=== PATIENT | female | born 1990 | race American Indian/Alaskan Native ===

== ENCOUNTER 2018-02-12 11:12 | Emergency (ER) | payer OTHER ==
[2018-02-12 11:12] VITALS: BMI 30.9
--- NOTE | 2018-02-12 12:11 | ED PDOC ---
Arrival/HPI <Analilia Klein - Last Filed: 02/12/18 14:20> - History of Present Illness Symptom Course: Improving <Daniel Galindo - Last Filed: 02/12/18 15:37> - General Chief Complaint: Abdominal Pain Time Seen by Provider: 02/12/18 11:18 - History of Present Illness Narrative History of Present Illness (Text): 27 year old Female with a PMH of panic attacks and asthma presents with worsening abdominal pain that started 3 days ago. 3 days ago she reports having worsening LLQ/ left pelvic cramping pain that was relieved over the past few days. She did not take anything to relieve the pain. She also reports increased urinary frequency for 2 days with 3 to 4 days of dysuria. She does not report hematuria. She reports runny feces at least 3 times a day for the past 3 days while she usually has only 0-1 bowel movements a day. She reports back pain that is exacerbated with movement. She reports her periods are regular and last had sex last Sunday. She denies any nausea or vomiting. Patient has a history of being seen for abdominal pain. She has had an appendectomy due to abdominal pain in 2009, which did not relieve her pain. She also has been examined for SBO, which came out negative about 2 years ago. 02/12/18 12:03 (Daniel Galindo) Past Medical History - Provider Review Nursing Documentation Reviewed: Yes - Infectious Disease Hx of Infectious Diseases: None - Tetanus Immunization Tetanus Immunization: Unknown - Cardiac Hx Cardiac Disorders: No - Pulmonary Hx Respiratory Disorders: Yes Hx Asthma: Yes - Neurological Hx Neurological Disorder: No - HEENT Hx HEENT Disorder: No - Renal Hx Renal Disorder: No - Endocrine/Metabolic Hx Endocrine Disorders: No - Hematological/Oncological Hx Blood Disorders: No - Integumentary Hx Dermatological Disorder: No - Musculoskeletal/Rheumatological Hx Musculoskeletal Disorders: No - Gastrointestinal Hx Gastrointestinal Disorders: Yes - Genitourinary/Gynecological Hx Genitourinary Disorders: No - Psychiatric Hx Psychophysiologic Disorder: Yes Hx Anxiety: Yes Hx Depression: No Hx Panic Disorder: Yes Hx Substance Use: No - Surgical History Hx Appendectomy: Yes Hx Section: Yes - Anesthesia Hx Anesthesia: Yes Hx Anesthesia Reactions: No Hx Malignant Hyperthermia: No - Suicidal Assessment Feels Threatened In Home Enviroment: No <Daniel Galindo - Last Filed: 02/12/18 15:37> Family/Social History - Physician Review Nursing Documentation Reviewed: Yes Family/Social History: Diabetes, Hypertension, Other (Small bowel obstruction) Smoking Status: Never Smoked Hx Alcohol Use: Yes Frequency of alcohol use: Socially Hx Substance Use: No <Erica Galindoectordurga - Last Filed: 02/12/18 15:37> Allergies/Home Meds <Analilia Klein - Last Filed: 02/12/18 14:20> <Erica Galindoectordurga - Last Filed: 02/12/18 15:37> Allergies/Adverse Reactions: Allergies No Known Allergies Allergy (Verified 02/12/18 11:32) Review of Systems - Physician Review All systems were reviewed & negative as marked: Yes - Review of Systems Constitutional: Normal Eyes: Normal ENT: Normal Respiratory: Normal Cardiovascular: Normal Gastrointestinal: Abdominal Pain, Diarrhea (not full diarrhea) Genitourinary Female: Dysuria, Frequency Musculoskeletal: Back Pain Skin: Normal Neurological: Normal Endocrine: Normal Hemo/Lymphatic: Normal <Erica Galindoectordurga - Last Filed: 02/12/18 15:37> Physical Exam <Analilia Klein - Last Filed: 02/12/18 14:20> Vital Signs Reviewed: Yes Temperature: Afebrile Blood Pressure: Normal Pulse: Regular Respiratory Rate: Normal Appearance: Positive for: Well-Appearing Pain Distress: Mild Mental Status: Positive for: Alert and Oriented X 3 - Systems Exam Head: Present: Atraumatic Pupils: Present: PERRL Extroacular Muscles: Present: EOMI Conjunctiva: Present: Normal Nose (External): Present: Atraumatic Respiratory/Chest: Present: Clear to Auscultation Cardiovascular: Present: Regular Rate and Rhythm Abdomen: Present: Other (Minimal LLQ tenderness. No guarding or rebound) Back: Present: Paraspinal Tenderness Upper Extremity: Present: Normal Inspection Lower Extremity: Present: Normal Inspection Neurological: Present: GCS=15, CN II-XII Intact, Motor Func Grossly Intact, Normal Sensory Function Psychiatric: Present: Alert, Oriented x 3, Normal Insight, Normal Concentration <Erica Galindoectordurga - Last Filed: 02/12/18 15:37> Vital Signs Temp Pulse Resp BP Pulse Ox 02/12/18 15:01 98.3 F 68 17 112/68 98 02/12/18 11:55 98.1 F 95 H 18 127/89 100 02/12/18 11:44 98.1 F 95 H 18 127/87 100 Medical Decision Making <Analilia Klein - Last Filed: 02/12/18 14:20> <Daniel Galindo - Last Filed: 02/12/18 15:37> ED Course and Treatment: 02/12/18 12:41 Patient seen and examined with medical officer psychiatry. On exam, patient is comfortable , eating, with NO pain on palpation of upper and lower quadrants, although she expresses that pain has been to LLQ. No fever. No nausea or vomiting. Denies vaginal bleeding or discharge. No association with meals or activity. 02/12/18 14:22 I have reviewed the patient's abnormal ultrasound report in laymens' terms. On re-exam, she has minimal pain and is afebrile, comfortable. I have discussed ultrasound extensively with patient and stressed need for follow-up with her cord cutter. Patient expresses understanding of diagnosis and need for follow-up. (Analilia Klein) Impression: 27 year old presents with left lower quadrant abdominal/pelvic pain that is crampy in nature for 3 days. Assessment: Psychogenic abdominal pain. Rule out pancreatitis, cholecystitis, ectopic , ovarian cyst, UTI, PID, pyelonephritis. Plan: CBC, CMP lipase urine analysis: small leukocyte esterase, 0-2 blood, 5-10 WBCs, moderate bacteria urine culture urine bHCG test: negative Pelvic U/S: 2.4 cm subserosal fundal fibroid. 2.4 cm complicated/ hemorrhagic cyst in the left ovary. 02/12/18 15:36 Patient will be discharged and told to follow up with PAPER [facility]OLDER doctor outpatient to evaluate causes of pelvic pain including but not limited to fibroid or hemorrhagic cyst 02/12/18 15:37 (Daniel Galindo) - Lab Interpretations Lab Results: 02/12/18 12:26 02/12/18 12:26 Lab Results 02/12/18 14:04: Urine Color Yellow, Urine Appearance Clear, Urine pH 6.0, Ur Specific [place] 1.020, Urine Protein Negative, Urine Glucose (UA) Negative, Urine Ketones Negative, Urine Blood Negative, Urine Nitrate Negative, Urine Bilirubin Negative, Urine Urobilinogen 0.2, Ur Leukocyte Esterase Small H, Urine RBC 0 - 2, Urine WBC 5 - 10, Ur Epithelial Cells 4 - 5, Urine Bacteria Mod , Urine HCG, Qual Negative 02/12/18 12:26: Sodium 141, Potassium 4.0, Chloride 105, Carbon Dioxide 26, Anion Gap 14, BUN 11, Creatinine 0.8, Est GFR ( Amer) > 60, Est GFR (Non- Af Amer) > 60, Random Glucose 75, Calcium 9.1, Total Bilirubin 0.4, AST 23, ALT 17, Alkaline Phosphatase 66, Total Protein 7.3, Albumin 4.1, Globulin 3.2, Albumin/Globulin Ratio 1.3, Lipase 89 02/12/18 12:26: WBC 7.0, RBC 4.60, Hgb 12.4, Hct 37.3, MCV 81.1, MCH 27.0, MCHC 33.2, RDW 13.7, Plt Count 298, MPV 10.1, Gran % 58.8, Lymph % (Auto) 28.6, [place] % (Auto) 6.7 H, Eos % (Auto) 5.3 H, Baso % (Auto) 0.6, Gran # 4.14, Lymph # ( Auto) 2.0, [place] # (Auto) 0.5, Eos # (Auto) 0.4, Baso # (Auto) 0.04 - RAD Interpretation Radiology Orders: 02/12/18 12:17 TRANSVAGINAL [US] Stat - PA / EXPEDITER CLERK / Resident Statement SUSAN has reviewed & agrees with the documentation as recorded. SUSAN has examined the patient and agrees with the treatment plan. <Daniel Galindo - Last Filed: 02/12/18 15:37> Disposition/Present on Arrival - Disposition Disposition Time: 14:00 <Analilia Klein - Last Filed: 02/12/18 14:20> - Present on Arrival Any Indicators Present on Arrival: No History of DVT/PE: No History of Uncontrolled Diabetes: No Urinary Catheter: No History of Decub. Ulcer: No History Surgical Site Infection Following: None - Disposition Have Diagnosis and Disposition been Completed?: Yes Disposition Time: 12:19 Patient Plan: Discharge <Daniel Galindo - Last Filed: 02/12/18 15:37> - Disposition Diagnosis: Abdominal pain, Hemorrhagic ovarian cyst, UTI (urinary tract infection) Disposition: HOME/ ROUTINE Patient Problems: Current Active Problems Problem Status Onset Abdominal pain Acute Hemorrhagic ovarian cyst Acute UTI (urinary tract infection) Acute Condition: STABLE Discharge Instructions (ExitCare): Urinary Tract Infection, Adult (DC), Ovarian Cyst (DC) Additional Instructions: For any fevers, any chills, any return or worsening of any pain, any abnormal vaginal bleeding, any nausea or vomiting, any change in location or character of pain, any persistent or worsening of any symptoms, get rechecked. Follow-up with your cord cutter as discussed in 1-2 days. Return to ER immediately for any worsening of symptoms. Please contact your doctor or call one of the physicians/clinics you have been referred to that are listed on the Patient Visit Information form that is included in your discharge packet. Bring any paperwork you were given at discharge with you along with any medications you are taking to your follow up visit. Our treatment cannot replace ongoing medical care by a primary care provider outside of the emergency department. Thank you for allowing the [facility] team to be part of your care today. If you had an X-Ray or CT scan: A Radiologist will review the ED reading if any change in treatment is needed we will contact you. If you had a blood, urine, or wound culture: It will take several days for the results, if any change in treatment is needed we will contact you. Prescriptions: Naproxen 250 mg PO BID PRN #10 tablet PRN Reason: Pain, Mild (1-3) Sulfamethoxazole/Trimethoprim [Bactrim DS 800 mg-160 mg] 1 tab PO BID #14 tab Referrals: Brijesh Samuels MD [Primary Care Provider] - Follow up with primary Jeffy Turner MD [Staff Provider] - [facility] - Follow up with primary Forms: [employer] (Hungarian), WORK NOTE
[2018-02-12 12:31] LABS: BASO # 0.04 K/mm3 (0.0-2.0); BASO % 0.6 % (0.0-3.0); EOS # 0.4 (0.0-0.7); EOS % 5.3 % (1.5-5.0); GRAN # 4.14 (1.4-6.5); GRAN % 58.8 % (50.0-68.0); HEMOGLOBIN 12.4 g/dL (12.0-16.0); LYMPH % 28.6 % (22.0-35.0); MEAN CELL VOLUME 81.1 fl (80.0-105.0); MEAN CORPUSCULAR HGB CONC 33.2 g/dl (31.0-37.0); MEAN PLATELET VOLUME 10.1 fl (7.0-11.0); MONO # 0.5 (0.1-0.6); MONO % 6.7 % (1.0-6.0); RBC 4.6 10^6/uL (3.5-6.1); RED CELL DISTRIBUTION WIDTH 13.7 % (11.5-14.5)
[2018-02-12 12:41] LABS: ALB/GLOB RATIO 1.3 (1.1-1.8); ALBUMIN 4.1 g/dL (3.0-4.8); ALT/SGPT 17 U/L (7-56); AST/SGOT 23 U/L (14-36); BLOOD UREA NITROGEN 11 mg/dL (7-21); CALCIUM 9.1 mg/dL (8.4-10.5); GFR AFRICAN-AMERICAN > 60; GFR NON-AFRICAN AMERICAN > 60; LIPASE 89 U/L (23-300)
--- NOTE | 2018-02-12 13:51 | US ---
Date of service: 02/12/2018 HISTORY: Left lower quadrant pain COMPARISON: None available. TECHNIQUE: Transabdominal and transvaginal pelvic ultrasound was performed. FINDINGS: UTERUS: Measures 11.5 x 4.6 x 6.1 cm. Anteverted an enlarged. There is a 2.2 x 2.1 x 2.4 cm subserosal fundal fibroid. . ENDOMETRIUM: Measures 10 mm in diameter. Normal in appearance. CERVIX: No cervical abnormality identified. RIGHT OVARY: Measures 3.2 x 1.9 x 1.3 cm. No solid mass. Normal flow. LEFT OVARY: Measures 3.3 x 2.1 x 2.8 cm. No solid mass. Normal flow. There is a 2.4 x 1.5 x 2.1 cm complicated/hemorrhagic cyst. FREE FLUID: No significant free fluid noted. OTHER FINDINGS: None. IMPRESSION: 2.4 cm subserosal fundal fibroid. 2.4 cm complicated/ hemorrhagic cyst in the left ovary.
[2018-02-12 14:33] LABS: URINE BILIRUBIN NEGATIVE (NEGATIVE); URINE BLOOD NEGATIVE (NEGATIVE); URINE GLUCOSE (UA) NEGATIVE (NEGATIVE); URINE LEUKOCYTE ESTERASE SMALL Leu/uL (NEGATIVE); URINE PROTEIN NEGATIVE mg/dL (<30 mg/dL); URINE UROBILINOGEN 0.2 E.U./dL (<1 E.U./dL)
[2018-02-12 14:34] LABS: URINE APPEARANCE CLEAR (CLEAR); URINE COLOR YELLOW (YELLOW)
[2018-02-12 14:39] LABS: URINE BACTERIA MOD (NEG); URINE RBC 0 - 2 /hpf (0-2)
[2018-02-12 14:40] LABS: HCG,QUALITATIVE URINE NEGATIVE (NEGATIVE)
[2018-02-12 15:02] VITALS: BP 112/68; RESP 17; TEMP 98.3; O2SAT 98
[2018-02-12 15:33] VITALS: PULSE 84
== END 2018-02-12 15:32 | disposition home or self-care (01) ==
LOC: ED 11:12
DX: N39.0 Urinary tract infection, site not specified (principal); R10.9 Unspecified abdominal pain; N83.202 Unspecified ovarian cyst, left side

== ENCOUNTER 2018-04-16 11:57 | Emergency (ER) | payer OTHER ==
[2018-04-16 11:57] VITALS: BMI 30.9
[2018-04-16 12:37] VITALS: PULSE 74; O2SAT 100
[2018-04-16] MEDS ORDERED: Sodium Chloride 0.9% 1,000 ML IV STA (13:07)
[2018-04-16 14:12] LABS: BASO # 0.04 K/mm3 (0.0-2.0); BASO % 0.4 % (0.0-3.0); EOS # 0.5 (0.0-0.7); EOS % 5.4 % (1.5-5.0); GRAN # 6.16 (1.4-6.5); LYMPH # 2.8 (1.2-3.4); MEAN CELL VOLUME 82.8 fl (80.0-105.0); MEAN CORPUSCULAR HEMOGLOBIN 27.7 pg (25.0-35.0); MEAN CORPUSCULAR HGB CONC 33.4 g/dl (31.0-37.0); MEAN PLATELET VOLUME 10.7 fl (7.0-11.0); MONO # 0.5 (0.1-0.6); MONO % 5.2 % (1.0-6.0); RBC 4.7 10^6/uL (3.5-6.1); RED CELL DISTRIBUTION WIDTH 13.8 % (11.5-14.5); WHITE BLOOD COUNT 10.1 10^3/ul (4.5-11.0)
[2018-04-16 14:22] LABS: ALB/GLOB RATIO 1.3 (1.1-1.8); ALBUMIN 4.9 g/dL (3.0-4.8); ALT/SGPT 17 U/L (7-56); AST/SGOT 33 U/L (14-36); BLOOD UREA NITROGEN 10 mg/dL (7-21); CALCIUM 9.5 mg/dL (8.4-10.5); GFR NON-AFRICAN AMERICAN > 60; LIPASE 126 U/L (23-300)
[2018-04-16 14:26] LABS: URINE BILIRUBIN NEGATIVE (NEGATIVE); URINE BLOOD LARGE (NEGATIVE); URINE GLUCOSE (UA) NEGATIVE (NEGATIVE); URINE LEUKOCYTE ESTERASE TRACE Leu/uL (NEGATIVE); URINE PROTEIN TRACE mg/dL (<30 mg/dL); URINE UROBILINOGEN 0.2 E.U./dL (<1 E.U./dL)
[2018-04-16 14:27] LABS: URINE APPEARANCE SL CLOUDY (CLEAR); URINE COLOR YELLOW (YELLOW)
[2018-04-16] MEDS ORDERED: Iohexol 350 MG/100 ML VIAL ONE (14:32)
[2018-04-16 14:37] LABS: URINE RBC 0 - 2 /hpf (0-2)
[2018-04-16 14:38] LABS: URINE BACTERIA FEW (NEG); URINE EPITHELIAL CELLS MANY /hpf (0-5)
--- NOTE | 2018-04-16 17:17 | ED PDOC ---
Arrival/HPI - General Chief Complaint: GI Problem Time Seen by Provider: 04/16/18 12:21 Historian: Patient - History of Present Illness Narrative History of Present Illness (Text): 04/16/18 17:12 27yr old female presents today with worsening abdominal pain over the past 2 days. pt with hx of appendectomy. c/o 2 day history of no bowel movement. pt denies fever/chills. no n/v/d. no urinary symptoms. no dizziness or weakness. pt states she has been taking miralax and otc treatments for constipation without improvement. pt also c/o a numbness sensation ONLY over the medial aspect of the right great toe. pt denies any trauma or injury. pt denies pain to the toe. no other complaints. Time/Duration: Other (2 days) Past Medical History - Provider Review Nursing Documentation Reviewed: Yes - Travel History Have you recently traveled outside [place] w/in the past 3 mons?: No - Infectious Disease Hx of Infectious Diseases: None - Tetanus Immunization Tetanus Immunization: Unknown - Cardiac Hx Cardiac Disorders: No - Pulmonary Hx Respiratory Disorders: Yes Hx Asthma: Yes - Neurological Hx Neurological Disorder: No - HEENT Hx HEENT Disorder: No - Renal Hx Renal Disorder: No - Endocrine/Metabolic Hx Endocrine Disorders: No - Hematological/Oncological Hx Blood Disorders: No - Integumentary Hx Dermatological Disorder: No - Musculoskeletal/Rheumatological Hx Musculoskeletal Disorders: No - Gastrointestinal Hx Gastrointestinal Disorders: Yes - Genitourinary/Gynecological Hx Genitourinary Disorders: No - Psychiatric Hx Psychophysiologic Disorder: Yes Hx Anxiety: Yes Hx Depression: No Hx Panic Disorder: Yes Hx Substance Use: No - Surgical History Hx Appendectomy: Yes Hx Section: Yes - Anesthesia Hx Anesthesia: Yes Hx Anesthesia Reactions: No Hx Malignant Hyperthermia: No - Suicidal Assessment Feels Threatened In Home Enviroment: No Family/Social History - Physician Review Nursing Documentation Reviewed: Yes Family/Social History: Unknown Family HX Smoking Status: Never Smoked Hx Alcohol Use: Yes Hx Substance Use: No Allergies/Home Meds Allergies/Adverse Reactions: Allergies No Known Allergies Allergy (Verified 04/16/18 12:21) Review of Systems - Review of Systems Constitutional: absent: Fatigue, Fevers Respiratory: absent: SOB, Cough Cardiovascular: absent: Chest Pain, Palpitations Gastrointestinal: Abdominal Pain, Constipation. absent: Diarrhea, Nausea, Vomiting Genitourinary Female: absent: Dysuria, Frequency, Hematuria Musculoskeletal: absent: Arthralgias, Back Pain, Neck Pain Skin: absent: Rash, Pruritis Neurological: absent: Headache, Dizziness Physical Exam Vital Signs Reviewed: Yes Vital Signs Temp Pulse Resp BP Pulse Ox 04/16/18 12:36 98.4 F 74 18 123/91 H 100 04/16/18 12:16 98.8 F 83 18 130/77 99 Temperature: Afebrile Blood Pressure: Normal Pulse: Regular Respiratory Rate: Normal Appearance: Positive for: Well-Appearing, Non-Toxic, Comfortable Pain Distress: None Mental Status: Positive for: Alert and Oriented X 3 - Systems Exam Head: Present: Atraumatic Mouth: Present: Moist Mucous Membranes Neck: Present: Normal Range of Motion Respiratory/Chest: Present: Clear to Auscultation, Good Air Exchange. No: Respiratory Distress, Accessory Muscle Use Cardiovascular: Present: Regular Rate and Rhythm, Normal S1, S2. No: Murmurs Abdomen: Present: Tenderness (+ diffuse lower abdominal tenderness). No: Distention, Peritoneal Signs, Rebound, Guarding Back: Present: Normal Inspection. No: CVA Tenderness, Midline Tenderness, Paraspinal Tenderness Upper Extremity: Present: Normal ROM Lower Extremity: Present: NORMAL PULSES, Normal ROM, Neurovascularly Intact, Capillary Refill < 2 s, Other (there is a small section of the right great toe that patient has decreased sensation; there appears to be thickened skin/calus formation at the same site. no erythema, no edema, no ecchymosis; ). No: CALF TENDERNESS, Tenderness, Swelling, Erythema Neurological: Present: GCS=15, Speech Normal, Motor Func Grossly Intact, Normal Sensory Function Skin: Present: Warm, Dry, Normal Color. No: Rashes Psychiatric: Present: Alert, Oriented x 3 Medical Decision Making ED Course and Treatment: 04/16/18 17:18 Patient is nontoxic well appearing with stable vital signs presenting with 2 day history of lower abdominal pain with no bowel movement. CBC wnl CMP wnl Lipase wnl Urinalysis wnl CAT scan: FINDINGS: LOWER THORAX: Unremarkable. LIVER: Hepatic steatosis. No focal masses. No intrahepatic bile duct dilatation or perihepatic ascites. Focal fatty sparing and the falciform ligament. GALLBLADDER AND BILE DUCTS: Unremarkable. PANCREAS: Unremarkable. No gross lesion or ductal dilatation. SPLEEN: Unremarkable. ADRENALS: Unremarkable. No mass. KIDNEYS AND URETERS: Unremarkable. No hydronephrosis. No solid mass. VASCULATURE: Unremarkable. No aortic aneurysm. BOWEL: Unremarkable. No obstruction. No gross mural thickening. Diverticulosis without an acute inflammatory component or other associated pathologic process. Constipation without fecal impaction or obstruction. APPENDIX: Surgical clips related to prior appendectomy right lower quadrant. PERITONEUM: Unremarkable. No free fluid. No free air. LYMPH NODES: Unremarkable. No enlarged lymph nodes. BLADDER: Unremarkable. REPRODUCTIVE: Unremarkable. BONES: No acute fracture. OTHER FINDINGS: None. IMPRESSION: No acute findings related to/accounting for the clinical presentation. Additional benign and/or incidental findings described above. xray; no fracture Discussed all results with patient in depth Patient reassessment: pt is non toxic well appearing; no distress. pt was offered fleets enema. pt does not want an enema. pt agrees to increase fluids, colace, and increase fiber. pt was advised to take medications as prescribed and f/u with PMD, GI specialist. pt was advised immediate return if symptoms worsen,persist or if new symptoms develop. Patient verbalizes understanding of discharge instructions and need for immediate followup. all aspects of this case were discussed the attending of record. Impression: Abdominal pain, UTI Motrin every 6 hours as needed for pain Keflex; 1 capsule twice daily x 7 days. increase fluids, increase fiber Follow up with primary care physician within the next 2 days Follow up with GI specialist within the next 2 days. Return immediately if symptoms worsen persist or if new symptoms develop: High fevers, increasing pain, vomiting, diarrhea or any other concerning symptoms develop 04/16/18 18:14 - Lab Interpretations Lab Results: 04/16/18 13:40 04/16/18 13:40 Lab Results 04/16/18 13:40: WBC 10.1 D, RBC 4.70, Hgb 13.0, Hct 38.9, MCV 82.8, MCH 27.7, MCHC 33.4, RDW 13.8, Plt Count 385, MPV 10.7, Gran % 61.0, Lymph % (Auto) 28.0, [place] % (Auto) 5.2, Eos % (Auto) 5.4 H, Baso % (Auto) 0.4, Gran # 6.16, Lymph # ( Auto) 2.8, [place] # (Auto) 0.5, Eos # (Auto) 0.5, Baso # (Auto) 0.04 04/16/18 13:40: Sodium 141, Potassium 3.6, Chloride 102, Carbon Dioxide 29, Anion Gap 14, BUN 10, Creatinine 0.7, Est GFR ( Amer) > 60, Est GFR (Non- Af Amer) > 60, Random Glucose 92, Calcium 9.5, Total Bilirubin 0.5, AST 33, ALT 17, Alkaline Phosphatase 78, Total Protein 8.6 H, Albumin 4.9 H, Globulin 3.7, Albumin/Globulin Ratio 1.3, Lipase 126 04/16/18 13:40: Urine Color Yellow, Urine Appearance Sl cloudy, Urine pH 6.0, Ur Specific [place] 1.025, Urine Protein Trace H, Urine Glucose (UA) Negative, Urine Ketones Negative, Urine Blood Large H, Urine Nitrate Negative, Urine Bilirubin Negative, Urine Urobilinogen 0.2, Ur Leukocyte Esterase Trace H, Urine RBC 0 - 2, Urine WBC 1 - 3, Ur Epithelial Cells Many, Urine Bacteria Few - RAD Interpretation Radiology Orders: 04/16/18 13:07 ABD & PELVIS IV CONTRAST ONLY [CT] Stat 04/16/18 13:08 FOOT RIGHT GREAT TOE ROUTINE [RAD] Stat - Medication Orders Current Medication Orders: Discontinued Medications Cephalexin Monohydrate (Keflex) 500 mg PO STAT STA PRN Reason: Protocol Stop: 04/16/18 18:08 Docusate Sodium (Colace) 100 mg PO STAT STA Stop: 04/16/18 18:04 Sodium Chloride (Sodium Chloride 0.9%) 1,000 mls @ 999 mls/hr IV .Q1H1M STA Stop: 04/16/18 14:07 Last Admin: 04/16/18 14:58 Dose: 999 mls/hr eMAR Start Stop Document 04/16/18 14:58 MR (Rec: 04/16/18 14:58 MR [id number]) Intravenous Solution Start Date 04/16/18 Start Time 14:38 End Date 04/16/18 End time 15:38 Total Infusion Time 60 Ketorolac Tromethamine (Toradol) 30 mg IVP STAT STA Stop: 04/16/18 17:16 Disposition/Present on Arrival - Present on Arrival Any Indicators Present on Arrival: No History of DVT/PE: No History of Uncontrolled Diabetes: No Urinary Catheter: No History of Decub. Ulcer: No History Surgical Site Infection Following: None - Disposition Have Diagnosis and Disposition been Completed?: Yes Diagnosis: Abdominal pain, Urinary tract infection Disposition: HOME/ ROUTINE Disposition Time: 17:50 Patient Plan: Discharge Patient Problems: Current Active Problems Problem Status Onset Abdominal pain Acute Urinary tract infection Acute Condition: GOOD Discharge Instructions (ExitCare): Acute Abdomen (Belly Pain), Adult (DC), Asymptomatic Bacteriuria Additional Instructions: Motrin every 6 hours as needed for pain Keflex; 1 capsule twice daily x 7 days. Colace; 1 capsule twice daily increase fluids, increase fiber Follow up with primary care physician within the next 2 days Follow up with GI specialist within the next 2 days. Return immediately if symptoms worsen persist or if new symptoms develop: High fevers, increasing pain, vomiting, diarrhea or any other concerning symptoms develop Prescriptions: Cephalexin [Keflex] 500 mg PO BID #14 capsule Docusate [Colace] 100 mg PO BID #30 cap Referrals: Brijesh Samuels MD [Primary Care Provider] - Follow up with primary Kenzie Solomon MD [Medical Doctor] - Follow up with primary Forms: [employer] (Khmer), WORK NOTE
--- NOTE | 2018-04-16 17:44 | CT ---
Date of service: 04/16/2018 PROCEDURE: CT Abdomen and Pelvis with contrast HISTORY: Mid abdominal pain. Relevant surgical history: Appendectomy. Negative test (concurrent with this examination). COMPARISON: None. TECHNIQUE: Contrast dose: 100 cc Omnipaque 350. Radiation dose: Total exam DLP = 792.07 mGy-cm. This CT exam was performed using one or more of the following dose reduction techniques: Automated exposure control, adjustment of the mA and/or kV according to patient size, and/or use of iterative reconstruction technique. FINDINGS: LOWER THORAX: Unremarkable. LIVER: Hepatic steatosis. No focal masses. No intrahepatic bile duct dilatation or perihepatic ascites. Focal fatty sparing and the falciform ligament. GALLBLADDER AND BILE DUCTS: Unremarkable. PANCREAS: Unremarkable. No gross lesion or ductal dilatation. SPLEEN: Unremarkable. ADRENALS: Unremarkable. No mass. KIDNEYS AND URETERS: Unremarkable. No hydronephrosis. No solid mass. VASCULATURE: Unremarkable. No aortic aneurysm. BOWEL: Unremarkable. No obstruction. No gross mural thickening. Diverticulosis without an acute inflammatory component or other associated pathologic process. Constipation without fecal impaction or obstruction. APPENDIX: Surgical clips related to prior appendectomy right lower quadrant. PERITONEUM: Unremarkable. No free fluid. No free air. LYMPH NODES: Unremarkable. No enlarged lymph nodes. BLADDER: Unremarkable. REPRODUCTIVE: Unremarkable. BONES: No acute fracture. OTHER FINDINGS: None. IMPRESSION: No acute findings related to/accounting for the clinical presentation. Additional benign and/or incidental findings described above.
[2018-04-16 18:43] VITALS: BP 131/76; RESP 20; TEMP 97.6
--- NOTE | 2018-04-17 12:12 | RAD ---
Date of service: 04/16/2018 PROCEDURE: Right Foot Radiographs. HISTORY: right great toe numbness/medial aspect COMPARISON: None. FINDINGS: BONES: There is a smooth broad-based exostosis on the lateral surface of the 1st proximal metatarsal. This is of doubtful clinical significance. JOINTS: Normal. SOFT TISSUES: Normal. OTHER FINDINGS: None. IMPRESSION: There is a smooth broad-based exostosis on the lateral surface of the 1st proximal metatarsal
== END 2018-04-16 18:41 | disposition home or self-care (01) ==
LOC: ED 11:57
DX: R10.9 Unspecified abdominal pain (principal); N39.0 Urinary tract infection, site not specified
CPT/HCPCS: 73660; 74177; 80053; 81001; 83690; 85025; 87086; 96361; 96374; 99284; J1885; J7030; Q9967